=== PATIENT | female | born 1975 | race Caucasian/White ===

== ENCOUNTER 2023-05-24 12:53 | Emergency (ER) | payer SELFPAY ==
[2023-05-24 13:32] LABS: Barbiturates NEGATIVE (NEGATIVE); Benzodiazepines NEGATIVE (NEGATIVE); Cocaine NEGATIVE (NEGATIVE); METHAMPHETAM NEGATIVE (NEGATIVE); Opiates NEGATIVE (NEGATIVE); Phencyclidine NEGATIVE (NEGATIVE); THC Cannibis POSITIVE (NEGATIVE)
[2023-05-24 13:34] LABS: Methadone ND (NEGATIVE)
[2023-05-24 14:07] LABS: Absolute Lymphocytes (CBC) 1.4 K/uL (0.7-4.9); Hematocrit 35.9 % (36.0-45.0); Lymphocytes % 18.1 % (15.3-44.8); MCV 90.9 fL (80-100); MPV 6.4 fL (7.6-11.3); Platelets 435 thou/uL (152-406); RBC Red Blood Cell Count 3.95 M/uL (3.86-4.86)
[2023-05-24 14:11] LABS: Protime INR 0.85
[2023-05-24 14:46] LABS: ALT/SGPT 22 U/L (13-56); AST/SGOT 14 U/L (15-37); Albumin 3.6 g/dL (3.4-5.0); Alkaline Phosphatase 49 U/L (45-117); BUN Blood Urea Nitrogen 7 mg/dL (7-18); Bicarbonate 28 mEq/L (21-32); Bilirubin Total 0.2 mg/dL (0.2-1.0); Glomerular Filtration Rate 113 ml/min (=/>90); Glucose Level 91 mg/dL (74-106); Potassium 4.1 mEq/L (3.5-5.1); Protein, Total 7.5 g/dL (6.4-8.2); Sodium Level 133 mEq/L (136-145)
[2023-05-24 14:48] LABS: Bilirubin Direct < 0.1 mg/dL (0-0.2); Bilirubin Indirect, Calculated ND mg/dL (0.2-0.8)
--- NOTE | 2023-05-24 17:59 | EDPHYS ---
Physician Documentation [facility] Name: Suellen Perales Age: 47 yrs Sex: Female : 1975 Arrival Date: 05/24/2023 Time: 12:53 Bed 20 Private MD: ED Physician Fernando Hoyos HPI: 05/24 13:07 This 47 yrs old Female presents to ER via Unassigned with complaints of SI. ec2 13:07 Patient arrives today due to concern for suicidal ideation. Patient states that she ec2 chronically feels suicidal, states that she might cut herself or burn herself with running into traffic. Patient states a history of anxiety as well as schizophrenia and bipolar disorder, and is on medications however has not taken them in several days to a week as she ran out of them. Patient reports no specific triggers or change in her symptoms today. She denies any ingestions or attempts.. Historical: - Allergies: 13:05 No Known Allergies; eh3 - PMHx: 13:05 Bipolar disorder; eh3 - Immunization history:: Adult Immunizations unknown. - Social history:: Smoking status: Patient/guardian denies using tobacco, Patient uses alcohol, on a daily basis. street drugs, marijuana. ROS: 13:07 Constitutional: as per hpi ec2 Exam: 13:07 Constitutional: GEN: NAD Head: atraumatic Eyes: EOMI Ears: External ears are ec2 normal. CV: regular rate LUNGS: no respiratory distress ABD: non-distended SKIN: no evidence of rashes MSK: no evidence of trauma NEURO: moves all extremities equally psych: Endorses suicidal ideation with a plan, no homicidal ideation, answers questions appropriately, cooperative. Vital Signs: 13:05 BP 117 / 87; Pulse 82; Resp 16; Temp 98.4(O); Pulse Ox 99% on R/A; Weight 56.7 kg; eh3 Height 5 ft. 4 in. ; 19:00 BP 117 / 70; Pulse 87; Resp 16; Temp 98.5(O); Pulse Ox 99% on R/A; eh3 20:49 BP 115 / 69; Pulse 87; Resp 16; Temp 98.6; Pulse Ox 97% on R/A; eh3 13:05 Body Mass Index 21.46 (56.70 kg, 162.56 cm) 3 MDM: 13:04 Patient medically screened. ec2 13:07 ED course: Patient arrives today due to concern for suicidal ideation. Examination ec2 remarkable for patient in regards to suicidality who otherwise in no acute distress who is well-appearing. Will obtain psych evaluation and reassess the patient.. 13:32 ED course: EKG independently reviewed and interpreted by me, shows normal sinus rhythm, ec2 rate of 93, no acute ST segment elevations, intervals are nonconcerning, no evidence of QTc prolongation or arrhythmia.. 14:54 ED course: Patient's lab work remarkable for reassuring CBC, metabolic profile shows ec2 appropriate electrolytes and renal function, patient with reassuring lipid profile, undetectable salicylate and Tylenol level, positive for THC. Patient is otherwise medically clear and appropriate for psychiatric evaluation. . 14:59 Data reviewed: vital signs. ec2 17:56 ED course: Psychiatry evaluated the patient at the bedside, recommend inpatient ec2 hospitalization.. 05/24 13:06 Order name: Acetaminophen; Complete Time: 14:53 ec2 05/24 13:06 Order name: Basic Metabolic Panel; Complete Time: 14:53 ec2 05/24 13:06 Order name: CBC with Diff; Complete Time: 14:28 ec2 05/24 13:06 Order name: ETOH Level; Complete Time: 14:28 ec2 05/24 13:06 Order name: Hepatic Function; Complete Time: 14:53 ec2 05/24 13:06 Order name: PT-INR; Complete Time: 14:28 ec2 05/24 13:06 Order name: Ptt, Activated; Complete Time: 14:28 ec2 05/24 13:06 Order name: Salicylate; Complete Time: 14:28 ec2 05/24 13:21 Order name: Urine Drug Screen; Complete Time: 14:28 EDMS 05/24 14:59 Order name: Test, Urine; Complete Time: 19:37 ec2 05/24 13:06 Order name: EKG; Complete Time: 13:42 ec2 05/24 13:06 Order name: EKG - Nurse/Tech; Complete Time: 13:22 ec2 05/24 13:06 Order name: IV Saline Lock; Complete Time: 13:22 ec2 05/24 13:06 Order name: Labs collected and sent; Complete Time: 13:22 ec2 05/24 13:06 Order name: Suicide Screening ([place]); Complete Time: 13:22 ec2 Administered Medications: No medications were administered Disposition Summary: 05/24/23 17:58 Transfer Ordered Notes: Transfer Location: Psych Facility ec2 Reason: Higher level of care ec2 Condition: Stable ec2 Problem: an acute exacerbation ec2 Symptoms: are unchanged ec2 Accepting Physician: psych facility(05/24/23 20:51) eh3 Diagnosis - Suicidal ideations ec2 Forms: - Medication Reconciliation Form ec2 - SBAR form ec2 Signatures: Dispatcher [employer] EDRuby Weinstein RN RN eh3 Fernando Hoyos MD MD ec2 Corrections: (The following items were deleted from the chart) 13:06 13:05 Patient medically screened. ec2 ec2 13:59 13:42 URINE DRUG SCREEN+UC.LAB.BRZ ordered. [facility]VA 20:51 17:58 psych facility ec2 eh3
--- NOTE | 2023-05-24 17:59 | ER ---
Nurse's Notes [facility] Name: Suellen Perales Age: 47 yrs Sex: Female : 1975 Arrival Date: 05/24/2023 Time: 12:53 Bed 20 Private MD: Diagnosis: Suicidal ideations Presentation: 05/24 13:05 Chief complaint: EMS states: toned out for suicidal ideation. Pt is currently homeless [facility] after losing her job in January. Hx of heavy alcohol use, pt states she's been trying to cut down on daily alcohol amount for several weeks. Stopped taking prescribed psych meds one week ago, states "I couldn't afford them and I didn't like the way they made me feel." States she had one beer this morning because she thought it would help her feel better. States she's gone through alcohol withdrawal before and this does not feel like previous withdrawals. States she feels lightheaded and her vision goes connors when she stands up from lying/sitting. Coronavirus screen: Vaccine status: Patient reports being unvaccinated. Ebola Screen: No symptoms or risks identified at this time. Initial Sepsis Screen: Does the patient meet any 2 criteria? No. Patient's initial sepsis screen is negative. Does the patient have a suspected source of infection? No. Patient's initial sepsis screen is negative. Risk Assessment: Do you want to hurt yourself or someone else? Patient reports desire/thoughts of hurting themselves or someone else. Provider notified. Onset of symptoms was May 24, 2023. 13:05 Method Of Arrival: EMS: [place] [id number] 13:05 Acuity: MULUGETA 3 eh3 Triage Assessment: 13:05 General: Appears in no apparent distress. uncomfortable, Behavior is cooperative. Pain: 3 Complains of pain in left hip and right hip. Neuro: Level of Consciousness is awake, alert, obeys commands, Oriented to person, place, time, situation, Speech is normal, Pupils are PERRLA. Cardiovascular: Capillary refill < 3 seconds Patient's skin is warm and dry. Respiratory: Airway is patent Respiratory effort is even, unlabored, Respiratory pattern is regular, symmetrical. GI: Abdomen is round non-distended. Derm: Skin is pink, warm \\T\\ dry. Derm: Musculoskeletal: Circulation, motion, and sensation intact. Range of motion: intact in all extremities. Historical: - Allergies: 13:05 No Known Allergies; eh3 - PMHx: 13:05 Bipolar disorder; eh3 - Immunization history:: Adult Immunizations unknown. - Social history:: Smoking status: Patient/guardian denies using tobacco, Patient uses alcohol, on a daily basis. street drugs, marijuana. Screenin:05 [facility] ED Fall Risk Assessment (Adult) Score/Fall Risk Level 0 - 2 = Low Risk. Abuse eh3 screen: Denies threats or abuse. Denies injuries from another. Nutritional screening: No deficits noted. Tuberculosis screening: No symptoms or risk factors identified. Assessment: 13:05 Reassessment: No changes from previously documented assessment. See triage assessment. eh3 14:00 Reassessment: Patient appears in no apparent distress at this time. Patient is alert, eh3 oriented x 3, equal unlabored respirations, skin warm/dry/pink. 15:00 Reassessment: Pt resting with eyes closed, equal unlabored respirations, skin eh3 warm/dry/pink. 16:00 Reassessment: Patient appears in no apparent distress at this time. Patient is alert, eh3 oriented x 3, equal unlabored respirations, skin warm/dry/pink. 17:00 Reassessment: Patient appears in no apparent distress at this time. Patient is alert, eh3 oriented x 3, equal unlabored respirations, skin warm/dry/pink. [place] at bedside. 18:00 Reassessment: Patient appears in no apparent distress at this time. Patient is alert, eh3 oriented x 3, equal unlabored respirations, skin warm/dry/pink. 18:26 Reassessment: Nurse to nurse report received by Meño at [facility]. 3 19:00 Reassessment: Patient appears in no apparent distress at this time. Patient is alert, eh3 oriented x 3, equal unlabored respirations, skin warm/dry/pink. 20:00 Reassessment: Patient appears in no apparent distress at this time. Patient is alert, eh3 oriented x 3, equal unlabored respirations, skin warm/dry/pink. Psych: 13:05 [place] Suicide Severity Screening: In the past month, have you wished you were eh3 or wished you could go to sleep and not wake up? Patient responds "yes." "In the past month, have you actually had any thoughts of killing yourself?" Patient responds "yes." Based off the client's response additional [place] suicide severity screening questions to be further documented on paper forms. "In your lifetime, have you ever done anything, started to do anything, or prepared to do anything to end your life?" Patient responds "yes.". Subjective: Patient's mood is sad, hopeless, Delusions are communicating with aliens Hallucinations are denied Having thoughts of suicide. Plan for suicide is run into traffic or cut wrists with knife. Objective: Patient is cooperative, Speech is normal, Affect is appropriate, Patient has mutilated themselves by cutting, but has not done that in many years. Interventions: Removed personal items and placed in bag. Searched person for dangerous items. Urine collected and sent for urine drug test. Belonging list filled out. Patient reassessed during use of restraints. Patient is physically safe. Safety Checks: Personal items have been removed. Door is open. No visitors are present at this time. Patient uses 6 pack of beer, daily. Last use was 4 hours ago. Patient does not have a history of DTs. Commitment: Patient will be a voluntary commitment. Vital Signs: 13:05 BP 117 / 87; Pulse 82; Resp 16; Temp 98.4(O); Pulse Ox 99% on R/A; Weight 56.7 kg; eh3 Height 5 ft. 4 in. ; 19:00 BP 117 / 70; Pulse 87; Resp 16; Temp 98.5(O); Pulse Ox 99% on R/A; eh3 20:49 BP 115 / 69; Pulse 87; Resp 16; Temp 98.6; Pulse Ox 97% on R/A; eh3 13:05 Body Mass Index 21.46 (56.70 kg, 162.56 cm) eh3 ED Course: 13:04 Patient arrived in ED. ld1 13:05 Fernando Hoyos MD is Attending Physician. ec2 13:05 Triage completed. Ruby Madrid, RADHA is Primary Nurse. eh3 13:05 Arm band placed on. eh3 13:05 Patient has correct armband on for positive identification. Bed in low position. eh3 Valuables inventory done. See valuables checklist. Provided Education on: suicide precautions. Sitter at bedside. Noise minimized. Lights dimmed. Warm blanket given. 13:15 Inserted saline lock: 22 gauge in right forearm, using aseptic technique. Blood eh3 collected. 15:08 contacted [facility] to have a screener evaluate pt. bd 16:05 faxed chart to [facility]. bd 17:20 denied at [facility] due to no beds at this time. bd 17:49 faxed chart to [facility] . bd 20:50 No provider procedures requiring assistance completed. IV discontinued, intact, eh3 bleeding controlled, No redness/swelling at site. Pressure dressing applied. Administered Medications: No medications were administered Medication: 20:50 VIS not applicable for this client. eh3 Outcome: 17:58 ER care complete, transfer ordered by . ec2 20:50 Transferred by ground EMS [facility]. to other acute care facility: [facility]. eh3 Transfer form completed. 20:50 Condition: stable 20:50 Instructed on the need for transfer, 20:51 Patient left the ED. eh3 Signatures: Lupe Song Sharmila Schreiber RN RN ld1 Ruby Madrid RN RN eh3 Fernando Hoyos MD MD ec2 Corrections: (The following items were deleted from the chart) 14:46 13:09 Ruby Madrid, RN is Primary Nurse. eh3 eh3 14:46 14:40 Triage completed. eh3 eh3 18:22 13:05 BP 117 / 87; Pulse 82bpm; Resp 16bpm; Pulse Ox 99% RA; Temp 98.4F Oral; eh3 eh3 18:27 13:15 Inserted saline lock: 22 gauge in right antecubital area, using aseptic eh3 technique. Blood collected. eh3
[2023-05-24 19:27] LABS: Specific Gravity 1.003 (1.005-1.030)
[2023-05-24 21:23] VITALS: BP 115/69; TEMP 98.6; O2SAT 97
--- NOTE | 2023-05-25 09:49 | EKG ---
Test Date: 2023-05-24 Test Time: 13:27:30 Electronic Field Service Engineer: KARLA MEASUREMENT RESULTS: Intervals: Rate: 93 MD: 122 QRSD: 86 QT: 376 QTc: 467 Aspers: P: 77 MD: 122 QRS: -14 T: 83 INTERPRETIVE STATEMENTS: Normal sinus rhythm Right atrial enlargement Borderline ECG No previous ECG available for comparison Electronically Signed On 05-25-23 09:46:13 CDT by Gabe Cortes
== END 2023-05-24 20:51 ==
LOC: ER 12:53
DX: R45.851 Suicidal ideations (principal)
CPT/HCPCS: 36415; 80048; 80076; 80143; 80179; 80307; 81025; 82077; 85025; 85610; 85730; 93005; 99285